=== PATIENT | male | born 1980 | race Hispanic/Latino ===

== ENCOUNTER 2019-01-06 16:05 | Emergency (ER) | payer OTHER ==
--- NOTE | 2019-01-06 16:20 | Emergency Department Report ---
Stated Complaint: SORE THROAT Time Seen by Provider: 01/06/19 16:15 - HPI History of Present Illness: Pt has had difficulty swallowing for 4 days difficulty swallowing solids or liquids, states he gets "choked up" when he tries to drink anything or eat jello difficulty swallowing own secretions has nausea pt is a current every day smoker no ETOH use MSE complete MSE screening note: Focused history and physical exam performed. Due to findings the following was ordered: ED Disposition for MSE Condition: Stable
--- NOTE | 2019-01-06 16:29 | Emergency Department Report ---
Blank Doc - Documentation Documentation: pt with difficulty swallowing x 4 days including secretions spoke with Dr. Quiroz recommended stroke protocol
[2019-01-06] MEDS ORDERED: DECADRON IV ONE (16:50)
[2019-01-06] MEDS ORDERED: NACL 0.9% 1000 ML 1,000 ML IV ONE (16:50)
[2019-01-06] MEDS ORDERED: TORADOL IV ONE (16:50)
--- NOTE | 2019-01-06 16:59 | Emergency Department Report ---
ED ENT HPI - General Chief complaint: Sore Throat Stated complaint: SORE THROAT Time Seen by Provider: 01/06/19 16:15 Source: EMS Mode of arrival: Ambulatory Limitations: No Limitations - History of Present Illness Initial comments: 38-year-old male presents to the ED with complaint of fever and sore throat 4 days. Patient states he's been unable to swallow liquids or solids due to the pain. Reports associated cough. MD complaint: sore throat, difficulty swallowing -: days(s) (4) Location: throat Severity: moderate Quality: sharp Consistency: constant Improves with: none Worsens with: swallowing Associated Symptoms: fever, cough, pain with swallowing, sore throat - Related Data Allergies Allergy/AdvReac Type Severity Reaction Status Date / Time No Known Allergies Allergy Unverified 01/06/19 16:16 ED Dental HPI - General Chief complaint: Sore Throat Stated complaint: SORE THROAT Time Seen by Provider: 01/06/19 16:15 Source: EMS Mode of arrival: Ambulatory Limitations: No Limitations - Related Data Allergies Allergy/AdvReac Type Severity Reaction Status Date / Time No Known Allergies Allergy Unverified 01/06/19 16:16 ED Review of Systems ROS: Stated complaint: SORE THROAT Other details as noted in HPI Comment: All other systems reviewed and negative Constitutional: fever ENT: throat pain Respiratory: cough ED Past Medical Hx - Past Medical History Previous Medical History?: Yes Additional medical history: 'Cut right hand with finger injury" - Surgical History Past Surgical History?: Yes Additional Surgical History: Cyst removed from back pf neck - Social History Smoking Status: Current Every Day Smoker Substance Use Type: Alcohol ED Physical Exam - General Limitations: No Limitations General appearance: alert, in no apparent distress - Head Head exam: Present: atraumatic, normocephalic - Eye Eye exam: Present: normal appearance - ENT ENT exam: Present: mucous membranes moist, other (posterior oropharynx erythematous, no exudates present, uvula midline, mild swelling to left tonsil) - Neck Neck exam: Present: lymphadenopathy (tender) - Respiratory Respiratory exam: Present: normal lung sounds bilaterally. Absent: respiratory distress, wheezes, stridor - Cardiovascular Cardiovascular Exam: Present: normal rhythm, tachycardia - GI/Abdominal GI/Abdominal exam: Present: soft. Absent: distended, tenderness - Extremities Exam Extremities exam: Present: normal inspection - Neurological Exam Neurological exam: Present: alert, oriented X3, CN II-XII intact. Absent: motor sensory deficit - Psychiatric Psychiatric exam: Present: normal affect, normal mood - Skin Skin exam: Present: warm, dry, intact, normal color ED Course Vital Signs 01/06/19 01/06/19 01/06/19 16:16 17:37 18:07 Temperature 98.4 F Pulse Rate 114 H Respiratory 20 18 18 Rate Blood Pressure 140/86 Blood Pressure [Right] O2 Sat by Pulse 98 Oximetry 01/06/19 19:44 Temperature 98.1 F Pulse Rate 89 Respiratory 20 Rate Blood Pressure Blood Pressure 120/71 [Right] O2 Sat by Pulse 98 Oximetry - Reevaluation(s) Reevaluation #1: 01/06/19 17:[address] Head was canceled by me. However, pt was still scanned. Computer states "stop request denied." Reevaluation #2: 01/06/19 19:23 CT Neck shows large left palatine tonsillar abscess. Clindamycin ordered. Will contact outside facility for transfer as we have no ENT on-call. - Consultations Consultation #1: 01/06/19 19:44 Transfer accepted at [facility] by Dr Thakur, ENT. ED Medical Decision Making - Lab Data Result diagrams: 01/06/19 16:45 01/06/19 16:45 - Radiology Data Radiology results: report reviewed, image reviewed - Medical Decision Making 38-year-old male presents to ED with four-day history of sore throat, fever, painful swallowing. Patient initially seen by the mid-level at triage and stroke workup was ordered due to what was interpreted as dysphasia. However when I saw the patient, these orders were canceled, including the CT head. But somehow, head CT was still done. WBC is elevated to 21, rapid flu and strep test were both negative. Decision was made to obtain a CT of the neck, which shows large left tonsillar abscess. Patient given 1 L bolus of IV fluids, Toradol, Decadron, clindamycin 900 mg IV. Patient's pain is much improved. 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 Spoke with Dr. Thakur, agrees to accept the patient in transfer. Patient is stable at this time. No concern for airway compromise. Awaiting transport arrival. - Differential Diagnosis strep throat, influenza, peritonsillar abscess Critical care attestation.: If time is entered above; I have spent that time in minutes in the direct care of this critically ill patient, excluding procedure time. ED Disposition Clinical Impression: Tonsillar abscess Disposition: [id number] ANOTHER TYPE [facility]THCARE Is pt being admited?: No Condition: Stable Referrals: PRIMARY CARE, [Primary Care Provider] - 3-5 Days
[2019-01-06 17:01] LABS: Hemoglobin 15.3 gm/dl (11.8-15.2); Mean Corpuscular HGB Conc 35 % (32-34); Mean Corpuscular Volume 93 fl (84-94); Platelet Count 244 K/mm3 (140-440); Red Blood Count 4.74 M/mm3 (3.65-5.03); Red Cell Distribution Width 13.6 % (13.2-15.2)
[2019-01-06 17:19] LABS: Alanine Aminotransferase 8 units/L (7-56); Albumin 4.3 g/dL (3.9-5); BUN/Creatinine Ratio 24; Blood Urea Nitrogen 24 mg/dL (9-20); Hemolysis Index 6
--- NOTE | 2019-01-06 17:24 | Cat Scan Report ---
CT HEAD/BRAIN WO CON CLINICAL INDICATION: Male, 38 years of age. new onset difficulty swallowing COMPARISON: None TECHNIQUE: Contiguous axial images were obtained from the vertex through the skull base.This CT exam was perform ed using one or more of the following dose reduction techniques: automated exposure control, adjustme nt of the mA and/or kV according to patient size, or use of iterative reconstruction technique. FINDINGS: No acute intracranial hemorrhage, midline shift, or extra-axial fluid collection. Ventricles and cis terns are normal in size and configuration for the patient's age. Paulino white differentiation is main tained. Calvarium is grossly intact. Ocular globes are grossly unremarkable. Mild mucosal thickening in the paranasal sinuses. Mastoid air cells are clear. IMPRESSION: No grossly acute intracranial abnormality. This document is electronically signed by Yoselin Olmedo DO., January 06 2019 05:21:54 PM ET
[2019-01-06 17:46] LABS: Total Cells Counted 100
[2019-01-06 17:47] LABS: Band Neutrophils # (Manual) 0.4 K/mm3; Basophils % (Manual) 0 % (0.0-1.8); Eosinophils % (Manual) 0 % (0.0-4.3); RBC Morphology Normal
[2019-01-06] MEDS ORDERED: CLEOCIN 900 MG/50 mL 900 MG/50 ML BAG IV ONE (19:11)
--- NOTE | 2019-01-06 19:17 | Cat Scan Report ---
CT NECK W CON CLINICAL INDICATION: Male, 38 years of age. pain, fever COMPARISON: None available. TECHNIQUE: Contiguous axial images were obtained. This CT exam was performed using one or more of th e following dose reduction techniques: automated exposure control, adjustment of the mA and/or kV acc ording to patient size, or use of iterative reconstruction technique. Additional sagittal and coronal reformatted images were obtained. IV contrast administered per institution protocol. Images are subm itted for interpretation. FINDINGS: There is a multiloculated rim-enhancing fluid collection which appears to be centered withi n the left palatine tonsil extends inferiorly along left lateral margin of the pharynx. In greatest a xial dimension, this measures 2.6 x 1.4 cm in craniocaudal dimension measures approximately 6 cm. Thi s causes partial effacement of the lateral margin of the posterior aspect of the pharynx. The upper a irway remains patent. True vocal cords are symmetric. Mild adjacent fat stranding and trace fluid in the margin of the abscess. Multiple borderline enlarged left cervical lymph nodes, likely reactive. 5 mm hypodense lesion left thyroid lobe. Salivary glands are unremarkable. Great arterial vessels of the neck remain patent. Mild to moderate paraseptal emphysema the lung apices. Visualized brain paren chyma and ocular globes are grossly unremarkable. Minimal mucosal thickening of the paranasal sinuses . Mastoid air cells are clear. Minimal degenerative changes of the cervical spine. IMPRESSION: 1. Large left palatine tonsillar abscess. Abscess is centered within the left palatine tonsil extends inferiorly the left lateral margin of the pharynx to the level of the inferior left thyroid cartilag e. Partial effacement of the airway. The upper airway does remain patent. 2. Multiple borderline enlarged left cervical lymph nodes, likely reactive. This document is electronically signed by Yoselin Olmedo DO., January 06 2019 07:14:53 PM ET
[2019-01-06 19:45] VITALS: BP 120/71
== END 2019-01-06 21:43 | disposition other institution (70) ==
LOC: EDSEX → ED 16:05
DX: J36 Peritonsillar abscess (principal); F17.200 Nicotine dependence, unspecified, uncomplicated; R13.10 Dysphagia, unspecified; R51 Headache
CPT/HCPCS: 36415; 70450; 70491; 80053; 85007; 85025; 87116; 87400; 87430; 96365; 96375; 99285; J1100; J1885; J7030; Q9967